=== PATIENT | female | born 1965 | race Caucasian/White ===

== ENCOUNTER 2018-04-02 16:24 | Emergency (ER) | payer OTHER ==
[2018-04-02] MEDS ORDERED: ONDANSETRON HCL/PF 4 MG/ 2ML VIAL IVP ONE (16:37)
[2018-04-02] MEDS ORDERED: HYDROmorphone HCL/PF 2 MG/ML DISP.SYRIN IVP ONE (16:37)
--- NOTE | 2018-04-02 16:45 | ED Physician Documentation ---
Abdominal Pain - HISTORIAN Historian: patient, spouse - HPI Stated Complaint: abdominal pain Chief Complaint: Abdominal Pain Additonal Information: Sudden onset severe abdominal pain, mid upper, and right upper. Feels like pressure. Has been constant and gotten stronger. Began as she and were getting ready to take the dogs for a ride. No unusual food intake. Never had this pain before. Car ride to ER increased her pain. Only surgery has been BTL. Last normal bowel movement yesterday. Belched once since pain began but it was very difficult to accomplish and didn't help her pain. She has not been passing gas. Last intake was lunch. Denies nausea, dysuria, frequency. No other modifying factors or associated signs. Onset: minutes Context: denies: out of country travel, bad food, recent trauma Quality: other (pressure) - ROS CONST: no problems - SOCIAL HX Smoking History: quit greater than 1 year (2013), cigarettes Alcohol Use: none Drug Use: none - FAMILY HX Family History: no significant history - PAST HX Past History: other (hypothyroid) Surgeries/Procedures: BLT Home Medications: Ambulatory Orders Medication Instructions Recorded Itraconazole 100 mg PO DAILY 04/02/18 Levothyroxine Sodium [Synthroid] 100 mcg PO 0700 04/02/18 Ondansetron [Zofran Odt] 4 mg PO Q6H PRN #10 tab.rapdis 04/02/18 Allergies/Adverse Reactions: Allergies Allergy/AdvReac Type Severity Reaction Status Date / Time No Known Allergies Allergy Verified 04/02/18 16:42 - VITAL SIGNS Vital Signs: Vital Signs Temp Pulse Resp BP Pulse Ox 98.4 F 91 H 24 184/94 99 04/02/18 16:36 04/02/18 16:36 04/02/18 16:36 04/02/18 16:36 04/02/18 16:36 - REVIEWED ASSESSMENTS Nursing Assessment Reviewed: Yes Vitals Reviewed: Yes Progress - Progress Progress: Report Submission Date: Apr 02, 2018 6:32:26 PM CDT Patient Study Name: PERLA HICKS Date: Apr 02, 2018 5:51:11 PM CDT Modality Type: CT\SR Gender: F Description: CT ABD PELVIS W/ CON : 67 Institution: [facility] [place] Physician: SKYLER ALEXANDER - ER CT abdomen and pelvis with intravenous contrast History: Abdominal pain Technique: Images through the abdomen and pelvis were obtained following intravenous contrast administration. Findings: The lung bases, liver, gallbladder, spleen, pancreas and adrenal glands are normal. Bilateral renal cysts are present. There is no hydronephrosis, hydroureter, free intraperitoneal air or fluid. There is no bowel obstruction. The appendix is normal. Uterus is grossly normal. The aorta enhances normally. Mild degenerative disc disease is noted at L5/S1. Impression: No significant abnormality. Electronically signed on Apr 02, 2018 6:32:26 PM CDT by: Jorge Treviño ED Results Lab/Radiology - Lab Results Lab Results: Lab Results 04/02/18 04/02/18 04/02/18 16:40 16:40 16:40 WBC Comment 8.67 thou/uL thou/uL (4.00-12.00) RBC 4.78 mil/uL mil/uL (3.90-5.20) Hemoglobin (Send Out) 14.3 g/dL g/dL (11.5-16.0) Hct (Send Out) 42.8 % % (34.5-46.5) MCV (Send Out) 89.5 fL fL (80.0-100.0) MCH 29.9 pg pg (28.0-34.0) MCHC (Send Out) 33.4 g/dL g/dL (30.0-36.0) RDW Coeff of Isatu 12.2 % % (11.3-14.7) Plt Count 336 thou/uL thou/uL (130-400) Absolute Lymphs (auto) 3.00 thou/uL thou/uL (0.60-4.00) Absolute Monos (auto) 0.62 thou/uL thou/uL (0.00-0.90) Absolute Basos (auto) 0.04 thou/uL thou/uL (0.00-0.50) Neutrophils % 49.7 % % (39.0-79.0) Absolute Neutrophils 4.31 thou/uL thou/uL (1.50-7.70) Lymphocytes 34.6 % % (16.0-50.0) Monocytes 7.1 % % (0.0-11.0) Absolute Eosinophils 0.71 thou/uL H thou/uL (0.00-0.60) Basophilia % 0.5 % % (0.0-1.5) Eosinophil Count 8.2 % H % (0.0-6.8) Sodium 139 mmol/L mmol/L (136-145) Potassium 4.1 mmol/L mmol/L (3.5-5.1) Chloride 100 mmol/L mmol/L (98-107) Carbon Dioxide 32 mmol/L H mmol/L (22-30) BUN 15 mg/dL mg/dL (7-17) Creatinine 0.80 mg/dL mg/dL (0.52-1.04) Estimated Creat Clear 133 Est GFR ( Amer) > 60 (60 - ) Est GFR (Non-Af Amer) > 60 (60 - ) Glucose 96 mg/dL mg/dL (74-106) Calcium 8.9 mg/dL mg/dL (8.4-10.2) Total Bilirubin 0.2 mg/dL mg/dL (0.2-1.3) AST 43 U/L U/L (15-46) ALT 47 U/L U/L (13-69) Alkaline Phosphatase 104 U/L U/L (38-126) Total Protein 7.6 g/dL g/dL (6.3-8.2) Albumin 4.1 g/dL g/dL (3.5-5.0) Lipase 92 U/L U/L (23-300) - Orders Orders: ED Orders Category Date Time Status CT ABD & PELVIS W/ CON Stat Exams 04/02/18 Taken CBC REF Routine Lab 04/02/18 16:40 Completed CMP Stat Lab 04/02/18 16:40 Completed LIPASE Stat Lab 04/02/18 16:40 Completed URINALYSIS Routine Lab 04/02/18 Ordered 0.9 % Sodium Chloride [Sodium Chloride] 100 ml Med 04/02/18 17:37 Discontinued IV .STK-MED HYDROmorphone HCL/PF [Dilaudid] Med 04/02/18 16:37 Discontinued 1 mg IVP NOW ONE Ondansetron HCl/Pf [Zofran 4 mg/2 ml] Med 04/02/18 16:37 Discontinued 4 mg IVP NOW ONE Promethazine HCl [Phenergan] Med 04/02/18 17:36 Discontinued 25 mg .ROUTE .STK-MED ONE Promethazine HCl [Phenergan] Med 04/02/18 17:38 Discontinued 25 mg IM NOW ONE Promethazine HCl [Phenergan] 25 mg Med 04/02/18 17:40 Discontinued 0.9 % Sodium Chloride [Sodium Chloride] 50 ml IV NOW Abdominal Pain Physical Exam - Physical Exam General Appearance: moderate distress EENT: eye inspection normal, ENT inspection normal, pharynx normal NECK: normal inspection, supple (non tender) RESPIRATORY: breath sounds normal CVS: reg rate & rhythm, heart sounds normal, no murmur ABDOMEN: soft, no organomegaly, tenderness (diffuse upper, mid and right), abnormal bowel sounds (very quiet), other (no psoas or obturator signs) BACK: normal inspection, no CVA tenderness, other (no vertebral tenderness) SKIN: warm/dry, normal color EXTREMITIES: normal range of motion, no evidence of injury NEURO: CN's nml as tested, motor nml, sensation nml, cognition normal Vital Signs: Vital Signs Temp Pulse Resp BP Pulse Ox 98.4 F 91 H 24 184/94 99 04/02/18 16:36 04/02/18 16:36 04/02/18 16:36 04/02/18 16:36 04/02/18 16:36 Discharge Clincal Impression: Abdominal pain Qualifiers: Abdominal location: upper abdomen, unspecified Qualified Code(s): R10.10 - Upper abdominal pain, unspecified Referrals: Yumi Ramirez, [employer] COORDINATOR [Primary Care Provider] - 2 Days Additional Instructions: All of your laboratory tests and the CT scan were quite reassuring. Return to the ER with worsening pain or vomiting you cannot control or if you cannot urinate for 8 hours. Advance your diet very slowly. Condition: Fair Disposition: 01 HOME, SELF-CARE Decision to Admit: NO Decision Time: 18:40
[2018-04-02 17:29] LABS: eGFR (Non-African) > 60
[2018-04-02] MEDS ORDERED: PROMETHAZINE HCL 25 MG/ML VIAL ONE (17:36)
[2018-04-02] MEDS ORDERED: 0.9 % SODIUM CHLORIDE 100 ML IV ONE (17:37)
[2018-04-02] MEDS ORDERED: PROMETHAZINE HCL 25 MG/ML VIAL IM ONE (17:38)
[2018-04-02] MEDS ORDERED: PROMETHAZINE HCL 25 MG in 0.9 % SODIUM CHLORIDE 50 ML IV ONE (17:40)
[2018-04-02 18:21] LABS: BASO % 0.5 % (0.0-1.5); EOS % 8.2 % (0.0-6.8); MCH. 29.9 pg (28.0-34.0); MCV 89.5 fL (80.0-100.0); MONOCYTE % 7.1 % (0.0-11.0); MONOCYTE ABS # 0.62 thou/uL (0.00-0.90); PLATELET COUNT 336 thou/uL (130-400)
--- NOTE | 2018-04-02 18:51 | Diagnostic Imaging Report ---
SKYLER ALEXANDER [facility] [address] [facility] [address] [address] Report Submission Date: Apr 02, 2018 6:32:26 PM CDT Patient Study Name: PERLA HICKS Date: Apr 02, 2018 5:51:11 PM CDT Modality Type: CT\SR Gender: F Description: CT ABD PELVIS W/ CON : 67 Institution: [facility] Physician: SKYLER ALEXANDER CT abdomen and pelvis with intravenous contrast History: Abdominal pain Technique: Images through the abdomen and pelvis were obtained following intravenous contrast administration. Findings: The lung bases, liver, gallbladder, spleen, pancreas and adrenal glands are normal. Bilateral renal cysts are present. There is no hydronephrosis, hydroureter, free intraperitoneal air or fluid. There is no bowel obstruction. The appendix is normal. Uterus is grossly normal. The aorta enhances normally. Mild degenerative disc disease is noted at L5/S1. Impression: No significant abnormality. Electronically signed on Apr 02, 2018 6:32:26 PM CDT by: Jorge NICOLAS
[2018-04-02] MEDS: ONDANSETRON HCL 4 MG TAB.RAPDIS PO ONE ×2 (18:55→19:00)
[2018-04-02 19:21] VITALS: BP 103/52
== END 2018-04-02 19:00 | disposition home or self-care (01) ==
LOC: ED 16:24
DX: R10.10 Upper abdominal pain, unspecified (principal)
CPT/HCPCS: 74177; 80053; 83690; 85025; A9270; J1170; J2405; J2550; 96365; 96375; Q9967; S1016